=== PATIENT | female | born 1975 | race Caucasian/White ===

== ENCOUNTER 2021-08-18 21:20 | Emergency (ER) | payer OTHER | END 2021-08-18 22:36 | disposition home or self-care (01) | LOC: FER 21:20 | DX: R42 Dizziness and giddiness (principal); T42.8X5A Adverse effect of antiparkinsonism drugs and other central muscle-tone depressants, initial encounter; I10 Essential (primary) hypertension; Z79.899 Other long term (current) drug therapy | CPT/HCPCS: 93005 ==